=== PATIENT | male | born 1995 | race Hispanic/Latino ===

== ENCOUNTER 2018-07-10 10:07 | Emergency (ER) | payer SELFPAY ==
[2018-07-10] MEDS ORDERED: Albuterol Sulfate 2.5 mg/0.5 ml Neb ONE ×4 (10:25→11:43)
[2018-07-10] MEDS ORDERED: Dexamethasone 4 mg/ml Vial ONE (10:26)
[2018-07-10] MEDS ORDERED: Magnesium 2 GM/50 ML BAG (IN WATER) ONE (10:26)
[2018-07-10 10:37] LABS: Actual Bicarbonate (HCO3a) 27.7 mEq/L (22-28); Analyzer IN Cardio ER; Base Excess (BEa) 0.4 mEq/L (-2.0 to +3.0); CO2 Tension 53.8 mmHg (35.0-45.0); Calcium, Ionized 1.16 mmol/L (1.12-1.30); Carboxyhemoglobin (COHb) 1.6 gm% (0.0-3.0); Hemoglobin (Hb) 17.4 g/dL (14.0-18.0); O2 Tension (PaO2) 63.8 mmHg (80.0-100.0); pH, Arterial 7.33 (7.35-7.45)
[2018-07-10 10:38] LABS: Puncture Site RRA
[2018-07-10 10:42] LABS: #Basophils 0.1 thou/uL (0.0-0.2); #Eosinphils 0.6 thou/uL (0.0-0.7); #Lymphocytes 1.8 thou/uL (1.20-3.40); #Monocytes 1.1 thou/uL (0.11-0.59); #Neutrophils 8.7 thou/uL (1.40-6.50); %Basophils 0.5 % (0.0-1.0); %Lymphocytes 14.9 % (21.0-51.0); %Monocytes 8.6 % (0.0-10.0); %Neutrophils 71.1 % (42.0-75.0); Mean Corpuscular HGB CONC 32.7 g/dL (32.0-36.0); Mean Corpuscular Volume 94.9 fL (78.0-98.0); Platelet Count 307 thou/uL (130-400); RBC Distribution Width 11.6 % (11.5-14.5); Red Blood Cell (RBC) Count 5.48 mill/uL (4.70-6.10); White Blood Cell (WBC) Count 12.2 thou/uL (4.8-10.8)
--- NOTE | 2018-07-10 11:04 | RAD ---
CHEST ONE VIEW: History: Chest pain. Comparison: None. FINDINGS: Mild increased peribronchial vascular markings. No pneumothorax. No effusion. No confluent airspace c onsolidation. IMPRESSION: Findings suggestive of reactive airway disease. POS: [facility]
[2018-07-10 11:30] LABS: ALT (SGPT) 12 U/L (8-55); AST (SGOT) 18 U/L (5-34); Albumin 4.4 g/dL (3.5-5.0); Alkaline Phosphatase 120 U/L (40-150); Anion Gap 13 mmol/L (10-20); BUN (Urea Nitrogen) 7 mg/dL (8.9-20.6); Bilirubin, Total 0.5 mg/dL (0.2-1.2); Calc. Creatinine Clearance 0 mL/min (70-130); Calcium 9.3 mg/dL (7.8-10.44); Carbon Dioxide 28 mmol/L (22-29); Chloride 102 mmol/L (98-107); Estimated GFR-MDRD Greater than 90; Globulin 3.2 g/dL (2.4-3.5); Glucose 106 mg/dL (70-105); Potassium 3.9 mmol/L (3.5-5.1); Protein, Total 7.6 g/dL (6.0-8.3); Sodium 139 mmol/L (136-145)
== END 2018-07-10 12:15 | disposition home or self-care (01) ==
LOC: ERS 10:07
DX: J45.901 Unspecified asthma with (acute) exacerbation (principal)
CPT/HCPCS: 36415; 71045; 80053; 82805; 85025; 94640; 94760; 96361; 96374; 96375; J1100; J3475; J7611; J7620

== ENCOUNTER 2018-07-10 15:07 | Inpatient (IN) | payer SELFPAY ==
[2018-07-10] MEDS ORDERED: Naloxone HCl 2 mg/2 ml Syringe ONE ×2 (15:16→16:51)
[2018-07-10] MEDS ORDERED: Albuterol Sulfate 2.5 mg/0.5 ml Neb ONE ×2 (16:55)
[2018-07-10] MEDS ORDERED: Naloxone HCl 2 MG, Admixture Fee 1 EACH in Sodium Chloride 0.9% 500 ML IV PRN (17:03)
[2018-07-10 17:48] LABS: #Basophils 0.1 thou/uL (0.0-0.2); #Lymphocytes 0.2 thou/uL (1.20-3.40); #Monocytes 0.3 thou/uL (0.11-0.59); #Neutrophils 18.5 thou/uL (1.40-6.50); %Basophils 0.6 % (0.0-1.0); %Eosinophils 0.2 % (0.0-10.0); %Lymphocytes 1.2 % (21.0-51.0); %Monocytes 1.7 % (0.0-10.0); %Neutrophils 96.4 % (42.0-75.0); Hemoglobin 15.7 g/dL (14.0-18.0); Mean Corpuscular HGB CONC 33.1 g/dL (32.0-36.0); Mean Corpuscular Volume 96.8 fL (78.0-98.0); Mean Platelet Volume 7.7 fL (7.4-10.4); Platelet Count 257 thou/uL (130-400); RBC Distribution Width 11.7 % (11.5-14.5); White Blood Cell (WBC) Count 19.2 thou/uL (4.8-10.8)
[2018-07-10 17:54] LABS: Bilirubin Negative (Negative); Blood, Urine Trace (Negative); Clarity CLEAR (Clear); Glucose, Urine (Dipstick) 100 mg/dL (Negative); Leukocyte Negative (Negative); Nitrite Negative (Negative); Protein, Urine (Dipstick) Negative (Neg-Trace); Specific Gravity, Urine 1.007 (1.002-1.036); Urobilinogen 0.2 mg/dL (0.2-1.0)
[2018-07-10 17:57] LABS: Bacteria/HPF None Seen HPF (None Seen); Hyaline Casts/LPF 4-6 HYALINE CAST LPF (0-3 Hyaline); Pathc Cast-AUWi Flag 0.87 (0-2.49); RBC/HPF 0-3 HPF (0-3)
[2018-07-10 18:04] LABS: Amphetamine Not Detected (NotDetected); Barbiturates Screen Not Detected (NotDetected); Benzodiazepine Screen Not Detected (NotDetected); Cocaine Metabolite Screen Not Detected (NotDetected); Medtox Control Line Valid? VALID (VALID); Medtox Reader # READER 4; Methadone Not Detected (NotDetected); Methamphetamine Not Detected (NotDetected); Opiate Screen Detected (NotDetected); Oxycodone Screen Not Detected (NotDetected); Phencyclidine (PCP) Not Detected (NotDetected); THC/Cannabinoid Screen Detected (NotDetected); Tricyclic Screen Not Detected (NotDetected)
--- NOTE | 2018-07-10 18:27 | PDOC.FPRHP ---
- History of Present Illness Chief Complaint: Heroin OD History of Present Illness: 23 yo M with PMH asthma and opioid abuse was brought in by EMS for heroin overdose. Patient was seen in ED prior that day because he ran out of asthma inhaler. Patient left hospital and then was found unresponsive in care with needle in arm. Friend called EMS. Given 1mg narcan by EMS, given 2mg then 2mg narcan in ED. Patient denies suicide attempt and says this was an accidental OD. Per ED report, patient uses heroin every other day, took more today than he usually does. Asthma: uses albuterol inhaler multiple times per day, no recent exacerbation, cough, SOB. ED report from earlier today said pt presented with 2 day hx productive cough, increased wheezing/SOB Mother in room and says pt has struggled with opioid abuse since age of 16, has had multiple rehab stays, overdoses with intubation. 3-4 intubation in life 2/2 OD or asthma. Patient moved from [place] in October. Recently visited [place] and hung out with wrong crowd. Mother says any time he goes to [place] he get into trouble. Pt says he might feel depressed at times. Never been diagnosed or treated. Also says there are times he feels on top of the world with no reason. Denies SI. ED Course: albuterol, duoneb, 2L, narcan 1mg EMS, narcan 2mg +2mg in ED, narcan drip - Allergies/Adverse Reactions Allergies Allergy/AdvReac Type Severity Reaction Status Date / Time Unable to Assess Allergy Verified 07/10/18 17:00 - History PMHx: Asthma PSHx: L toe FHx: DM grandfather, Breast cancer grandmother Social: Marijuana, cocaine abuse. Denies tobacco use. Intermittent alcohol use, unable to quantify. - Review of Systems General: denies: fever/chills ENT: denies: nasal congestion Respiratory: denies: cough, shortness of breath Cardiovascular: denies: chest pain, palpitation Gastrointestinal: denies: nausea, vomiting, diarrhea, abdominal pain Genitourinary: denies: incontinence, dysuria Skin: denies: rashes, lesions Musculoskeletal: denies: pain, tenderness Neurological: denies: seizure, weakness Psychological: reports: depression. denies: anxiety - Vital signs BP: 109/45 HR: 101 RR: 14 Tmax: 98.3 Pox: 95% on RA Wt: 78 kg - Physical Exam Constitutional: NAD, other (Oriented x3, short and senior living memory recall, intermittently falls asleep in exam, follows commands) HEENT: normocephalic and atraumatic, EOMI, conjunctiva clear, MMM, other ( pupils pinpoint) Heart: RRR, normal S1/S2, no murmurs/rubs/gallops, pulses present, no edema Lungs: no respiratory distress, good air movement, other (diffuse expiratory wheeze) Abdomen: soft, non-tender, bowel sounds present Musculoskeletal: normal structure, normal tone Neurological: no focal deficit Skin: no rash/lesions, good turgor, capillary refill <2 seconds Heme/Lymphatic: no unusual bruising or bleeding Psychiatric: intact recent and remote memory FMR H&P: Results - Labs Result Diagrams: 07/11/18 04:44 07/11/18 04:44 Lab results: WBC 19.2 thou/uL (4.8-10.8) H 07/10/18 17:18 Hgb 15.7 g/dL (14.0-18.0) 07/10/18 17:18 Hct 47.5 % (42.0-52.0) 07/10/18 17:18 MCV 96.8 fL (78.0-98.0) 07/10/18 17:18 Plt Count 257 thou/uL (130-400) 07/10/18 17:18 Neutrophils % 96.4 % (42.0-75.0) H 07/10/18 17:18 Urine Ketones Negative mg/dL (Negative) 07/10/18 17:10 Urine Blood Trace (Negative) H 07/10/18 17:10 Urine Nitrite Negative (Negative) 07/10/18 17:10 Ur Leukocyte Esterase Negative (Negative) 07/10/18 17:10 Urine RBC 0-3 HPF (0-3) 07/10/18 17:10 Urine WBC 4-6 HPF (0-3) H 07/10/18 17:10 Ur Squamous Epith Cells 4-6 HPF (0-3) H 07/10/18 17:10 Urine Bacteria None Seen HPF (None Seen) 07/10/18 17:10 FMR H&P: A/P - Problem List (1) Acute respiratory failure with hypoxia Current Visit: Yes Status: Acute Code(s): J96.01 - ACUTE RESPIRATORY FAILURE WITH HYPOXIA (2) Heroin overdose Current Visit: Yes Status: Acute Code(s): T40.1X1A - POISONING BY HEROIN, ACCIDENTAL (UNINTENTIONAL), INIT ENCNTR (3) Marijuana abuse Current Visit: Yes Status: Acute Code(s): F12.10 - CANNABIS ABUSE, UNCOMPLICATED (4) Asthma Current Visit: Yes Status: Acute Code(s): J45.909 - UNSPECIFIED ASTHMA, UNCOMPLICATED - Plan Acute Hypoxic Respiratory Failure 2/2 Heroin Overdose - UDS pos for opioid, cannabinoid - was requiring supplemental O2, but this resolved with additional narcan doses , now satting well on RA - received 5mg narcan total, now on narcan drip. Will wean narcan drip to maintain respiratory status - pt denies suicide attempt Heroin abuse - for past ~7 years - has bene in rehabs multiple times - consult CM for rehab placement options Mild asthma exacerbation - recevied decadron, mag, nebs in ED earlier in the day. Sent home with rx fro medrol pack and z pack - uses albuterol inhaler multiple times daily typically - continue steroids, nebs - patient likely needs addition to asthma regimen for better control, CM to assist as well Marijuana abuse Dispo: admit to CCU FMR H&P: Upper Level - Pertinent history 23 yr old male with PMH of asthma and several year history of drug abuse is brought to ER after being found unresponsive in his car with needle and heroin. He was given 1 mg narcan in the field followed by 2 subsequent 2mg doses in the ER. He was placed on narcan drip and transferred to CCU. He was seen in ER earlier this AM to get a refill of his albuterol inhaler and was diagnosed with asthma exacerbation. He received decadron 10 mg and mag. He reports daily use of albuterol inhaler. His mother is at bedside with her boyfriend. She reports that they moved to [place] little over 2 years ago from [place]. Approx 7 months ago they moved from [place] to [place]. He had an issue with heroin abuse in [place] but had been clean for the last few months. Last presumed overdose with in 01/2018 where he required intubation. Mom notes at least 3-4 previous intubations for either asthma exacerbations or overdoses. Patient otherwise has a negative ROS except for possible depression- he is very sleepy and unable to provide good history for this at this time. - Pertinent findings Gen: drowsy but arrousable and answers questions, no acute distress Eyes: pinpoint pupils bilaterally Mouth: MMM Heart: RRR no M/R/G Lungs: Good air movement with some diffuse wheezing, no rhales or rhonchi Abd: normal active bowel sounds, non-tender to palpation Ext: no edema bilaterally - Plan Date/Time: 07/10/181826 I, [Linda Martinez], have evaluated this patient and agree with findings/plan as outlined by consultant intern resident. Pertinent changes/additions are listed here. 23 yr old male with acute intoxication acute hypoxic respiratory failure 2/2 heroin overdose -resolved with narcan -titrate narcan drip down to 1 mg/ hr and cont to titrate overnight -monitor closely in ICU -after narcan off 3 hours, likely safe to discharge Heroin overdose -see above for plan -consult social service agency director for rehab options and outpatient health for all Asthma exacerbation, mild -received mag and steroids this AM in ER -cont on prednisone taper -cont on duonebs PCP: none code status: full diet: reg dispo: likely in 1-2 day
[2018-07-10 18:31] LABS: ALT (SGPT) 21 U/L (8-55); AST (SGOT) 29 U/L (5-34); Acetaminophen Less than 6.0 mcg/mL (10.0-30.0); Albumin 3.9 g/dL (3.5-5.0); Alcohol Less than 10 mg/dL (Less than 10); Alkaline Phosphatase 104 U/L (40-150); Anion Gap 15 mmol/L (10-20); BUN (Urea Nitrogen) 8 mg/dL (8.9-20.6); Bilirubin, Total 0.4 mg/dL (0.2-1.2); CK (CPK) 186 U/L (30-200); Calc. Creatinine Clearance 0 mL/min (70-130); Calcium 8.3 mg/dL (7.8-10.44); Carbon Dioxide 21 mmol/L (22-29); Chloride 107 mmol/L (98-107); Estimated GFR-MDRD 87; Globulin 2.6 g/dL (2.4-3.5); Glucose 178 mg/dL (70-105); Potassium 3.8 mmol/L (3.5-5.1); Protein, Total 6.5 g/dL (6.0-8.3); Salicylate Less than 8.0 mg/dL (15.0-30.0); Sodium 139 mmol/L (136-145)
[2018-07-10] MEDS ORDERED: SODIUM CHLORIDE IV PRN (19:00)
[2018-07-10] MEDS ORDERED: NALOXONE HCL IV PRN (19:00)
[2018-07-10] MEDS ORDERED: ADMIXTURE FEE IV PRN (19:00)
[2018-07-10] MEDS ORDERED: Ondansetron PF 4 MG/2 ML Vial IVP PRN (19:10)
[2018-07-10] MEDS ORDERED: Ondansetron ODT 4 MG TAB SL PRN (19:10)
[2018-07-10 19:16] LABS: Bilirubin Negative (Negative); Blood, Urine Trace (Negative); Clarity CLEAR (Clear); Glucose, Urine (Dipstick) 100 mg/dL (Negative); Leukocyte Negative (Negative); Nitrite Negative (Negative); Protein, Urine (Dipstick) Negative (Neg-Trace); Specific Gravity, Urine 1.009 (1.002-1.036); Urobilinogen 0.2 mg/dL (0.2-1.0)
[2018-07-10 19:21] LABS: Bacteria/HPF None Seen HPF (None Seen); Pathc Cast-AUWi Flag 1.88 (0-2.49); RBC/HPF 0-3 HPF (0-3); WBC/HPF 0-3 HPF (0-3)
[2018-07-10 19:31] LABS: Hyaline Casts/LPF 0-3 HYALINE CAST LPF (0-3 Hyaline); Transitional Epithelial 0-3 HPF (0-3)
[2018-07-10] MEDS: D5 1/2 NS w/20 mEq KCL 1,000 ML IV SCH (20:06)
[2018-07-10 20:13] LABS: Hemoglobin A1c 5.1 % (4.0-6.0)
--- NOTE | 2018-07-10 20:43 | RAD ---
PORTABLE CHEST: 07/10/18 HISTORY: Asthmatic exacerbation. COMPARISON: 07/10/18 study. Heart size and mediastinum are within normal limits. The lungs are clear of infiltrates. No bony find ings. IMPRESSION: No active intrathoracic disease. POS: [facility]
[2018-07-11 05:01] VITALS: TEMP 98.6
[2018-07-11 05:15] LABS: #Lymphocytes 1.2 thou/uL (1.20-3.40); #Monocytes 1.1 thou/uL (0.11-0.59); #Neutrophils 10.2 thou/uL (1.40-6.50); %Basophils 0.1 % (0.0-1.0); %Eosinophils 0.2 % (0.0-10.0); %Lymphocytes 9.5 % (21.0-51.0); %Neutrophils 81.2 % (42.0-75.0); Hemoglobin 14.4 g/dL (14.0-18.0); Mean Corpuscular HGB CONC 33.5 g/dL (32.0-36.0); Mean Corpuscular Hemoglobin 32.1 pg (27.0-31.0); Mean Corpuscular Volume 95.7 fL (78.0-98.0); Mean Platelet Volume 7.4 fL (7.4-10.4); Platelet Count 284 thou/uL (130-400); RBC Distribution Width 11.6 % (11.5-14.5); White Blood Cell (WBC) Count 12.5 thou/uL (4.8-10.8)
[2018-07-11 05:32] LABS: ALT (SGPT) 16 U/L (8-55); AST (SGOT) 26 U/L (5-34); Albumin 3.9 g/dL (3.5-5.0); Alkaline Phosphatase 96 U/L (40-150); Anion Gap 13 mmol/L (10-20); BUN (Urea Nitrogen) 7 mg/dL (8.9-20.6); Bilirubin, Total 0.6 mg/dL (0.2-1.2); Calc. Creatinine Clearance 0 mL/min (70-130); Calcium 9.1 mg/dL (7.8-10.44); Carbon Dioxide 23 mmol/L (22-29); Chloride 107 mmol/L (98-107); Estimated GFR-MDRD Greater than 90; Globulin 2.6 g/dL (2.4-3.5); Glucose 126 mg/dL (70-105); Protein, Total 6.5 g/dL (6.0-8.3); Sodium 139 mmol/L (136-145)
[2018-07-11 05:47] LABS: Syphilis Antibody Nonreactive (Nonreactive); Syphilis Antibody Index 0.05 S/CO (<1.00 Non-Reactive)
[2018-07-11 05:49] LABS: Hep C IgG Ab Non-Reactive (NonReactive); Hep C Index 0.19 S/CO (0-0.79)
[2018-07-11] MEDS: D5 1/2 NS w/20 mEq KCL 1,000 ML IV SCH (07:34)
--- NOTE | 2018-07-11 07:39 | PDOC.FM ---
- Subjective Subjective: This morning the patient states he is feeling well overall. He states he slept well. Denies cough or SOB. The patient denies fevers, chills, or sweats. He states he had not used heroin in some time and recently went to [place] and spent time with some friends that gave him heroin. Per mother's report has has been intubated multiple times in the past 2/2 overdose. The patient states he injected tar and thinks he overdosed because he had not used for a while. Patient states he would be interested in doing an outpatient treatment program. - Objective Vital Signs & Weight: Vital Signs (12 hours) Temp Pulse Resp Pulse Ox 07/11/18 07:11 89 16 99 07/11/18 05:00 98.6 F 07/11/18 03:30 94 L 07/11/18 02:00 98.8 F 07/10/18 23:50 95 07/10/18 23:32 117 H 20 99 07/10/18 23:00 98.4 F 07/10/18 19:44 95 Most Recent Monitor Data Heart Rate from ECG 93 NIBP 120/80 NIBP BP-Mean 93 Respiration from ECG 13 SpO2 97 I&O: 07/10/18 07/11/18 07/12/18 06:59 06:59 06:59 Intake Total 330 Output Total 2500 0 Balance -2170 0 Result Diagrams: 07/11/18 04:44 07/11/18 04:44 Phys Exam - Physical Examination Constitutional: NAD HEENT: PERRLA, moist MMs Neck: no nodes Respiratory: no wheezing, clear to auscultation bilateral Cardiovascular: RRR, no significant murmur, no rub Gastrointestinal: soft, non-tender, no distention, positive bowel sounds Musculoskeletal: no edema, pulses present Neurological: non-focal, moves all 4 limbs Lymphatic: no nodes Psychiatric: normal affect, A&O x 3 Skin: no rash, cap refill <2 seconds Dx/Plan (1) Acute respiratory failure with hypoxia Code(s): J96.01 - ACUTE RESPIRATORY FAILURE WITH HYPOXIA Status: Acute (2) Asthma Code(s): J45.909 - UNSPECIFIED ASTHMA, UNCOMPLICATED Status: Acute (3) Heroin overdose Code(s): T40.1X1A - POISONING BY HEROIN, ACCIDENTAL (UNINTENTIONAL), INIT ENCNTR Status: Acute (4) Marijuana abuse Code(s): F12.10 - CANNABIS ABUSE, UNCOMPLICATED Status: Acute - Plan Plan: 23 yr old male with heroin overdose Heroin overdose -see above for plan -case management consulted for additional resource recs - off narcan since 8pm last night - has naloxone at home - denies SI, states has not used for a while - discussed safe practices, discussed cessation - patient is interested in outpatient treatment, gave information for [facility] Asthma exacerbation, mild -r eceived mag and steroids morning of 07/11 in ED - cont on prednisone taper, has script for taper - will check peak flow this AM - will plan to prescribe pulmicort 2/2 hx of multiple exacerbations and daily albuterol usage acute hypoxic respiratory failure 2/2 heroin overdose- resolved PCP: none-> will f/u with Dr. Dread Jules code status: full diet: reg dispo: anticipate d/c this AM Addendum - Attending - Attending Attestation Date/Time: 07/11/18 [id number] I personally evaluated the patient and discussed the management with Dr. Jules. I agree with and repeated the History, Examination, Assessment and Plan documented above with any addition or exceptions noted below.
[2018-07-11] MEDS ORDERED: predniSONE 20 MG TAB PO SCH (08:00)
[2018-07-11] MEDS ORDERED: Enoxaparin Sodium 40 MG/0.4 ML SYRINGE SC SCH (09:00)
--- NOTE | 2018-07-11 09:29 | CON ---
DATE OF CONSULTATION: HISTORY OF PRESENT ILLNESS: Jared Boggs is a 23-year-old gentleman who was admitted to the hospital last night at 6:30 after he took IV heroin as per his history. He done as before. He apparently was placed on a Narcan drip. He says he uses 50-60 injections. He works at a local restaurant. He is from [place]. This morning, he is awake, alert, and responsive. He was on a Narcan, which will be discontinued. PAST MEDICAL HISTORY: Asthma. He takes an albuterol inhaler. Previous admissions for asthma. PAST SURGICAL HISTORY: None. SOCIAL HISTORY: He has longstanding history of drug abuse. Denies any tobacco abuse. CURRENT MEDICATIONS: Includin. Singulair 10. 2. Pulmicort. 3. Albuterol inhaler. ALLERGIES: NONE. REVIEW OF SYSTEMS: Otherwise unremarkable. PHYSICAL EXAMINATION: GENERAL: Awake, alert, and responsive. VITAL SIGNS: Temperature 98, pulse 89, and blood pressure 104/65. CHEST: Decreased breath sounds. No wheezing. CARDIAC: Normal S1, S2. No gallops. ABDOMEN: No masses. LABORATORY DATA: White count 39185, H and H , platelet count is normal. Lytes are normal. His toxicology screen revealed opiates and cannabinoids. He had a chest x-ray taken in the ER, which shows no acute infiltrates. IMPRESSION: 1. Metabolic encephalopathy secondary to intravenous heroin abuse. 2. History of asthma. PLAN: The patient appears to be at baseline. He is going to get outpatient treatment for his heroin addiction. Otherwise, he can continue his Singulair 10, Pulmicort twice a day, as needed. Pulmonary/Critical Care will follow while in the ICU. Job ID: [id number]
--- NOTE | 2018-07-12 08:06 | DIS ---
DATE OF ADMISSION: 07/10/2018 DATE OF DISCHARGE: 07/11/2018 RESIDENT: Dread Jules MD ADMITTING ATTENDING: Alcides Frye MD DISCHARGE ATTENDING: Hamlet Awad MD CONSULTS: Pulmonology, Dr. Contreras. PROCEDURES: None. PRIMARY DIAGNOSIS: Heroin overdose. SECONDARY DIAGNOSIS: Asthma exacerbation. DISCHARGE MEDICATIONS: 1. Pulmicort. 2. Singulair. 3. Albuterol. 4. Medrol Dosepak. Discontinued medications: None. HISTORY OF PRESENT ILLNESS/HOSPITAL COURSE: This is a 23-year-old male with history of multiple intubations secondary to heroin overdose and also other intubations secondary to asthma exacerbations. He recently moved to [facility] from [place] and [place] before that. The patient has a long history of heroin abuse. He states he had not used heroin for the last few months. Yesterday afternoon, he injected himself with heroin and stated that he did not have tolerance, so he had injected the same amount he was using before. He was found unconscious in his car by a friend. Upon presentation to the ER, he was given 2 doses of Narcan and was still having mild decreased respiratory rate. Therefore, he was put on a Narcan drip and admitted to the ICU. He was taken off the Narcan drip at 8:00 p.m. He slept well throughout the night and had no issues. The patient was given DuoNeb throughout the stay. The patient states that he ran out of his albuterol and had been using it daily for the last few weeks. He states that he had been on Singulair in the past and it was helpful. Poison Control was consulted and they said that after being off the Narcan for 6 hours in observation, he would be stable for discharge. Safe use of heroin was discussed including using sterile water, clean cooker and throwing away cotton balls. The patient states he plans to abstain from heroin in the future. Information was given on outpatient treatment programs. He states he is not interested in inpatient treatment at this time, but he would call the outpatient programs. The patient is given follow up with Dr. Dread Jules, [facility] in 1 week. The patient will also follow up with Psychology at [facility]. DISPOSITION: Stable. DISCHARGE INSTRUCTIONS: 1. Location: Home. 2. Diet: Regular. 3. Activity: As tolerated. 4. Followup: Continue to discuss heroin abstinence. Treat asthma action plan. Establish care with [facility] with financial assistance program. Job ID: [id number]
== END 2018-07-11 11:01 | disposition home or self-care (01) | DRG 917 ==
LOC: ERS 15:07 → CCU 18:53
PROVIDERS: ADMIT Family Medicine; ATTEND Family Medicine
DX: T40.1X1A Poisoning by heroin, accidental (unintentional), initial encounter (principal); J96.01 Acute respiratory failure with hypoxia; G92 Toxic encephalopathy; J45.901 Unspecified asthma with (acute) exacerbation; F12.10 Cannabis abuse, uncomplicated
CPT/HCPCS: 36415; 36416; 71045; 80053; 80306; 80307; 81003; 81015; 82550; 83036; 85025; 86780; 86803; 93005; 94640; 94644; 96361; 96365; 96374; 96376; J1650; J2310; J7050; J7611; J7620

== ENCOUNTER 2019-03-22 13:45 | Inpatient (IN) | payer SELFPAY ==
[2019-03-22 15:16] VITALS: BMI 24.4
[2019-03-22] MEDS ORDERED: HYDROcodone/Acetaminophen 5/325 mg Tablet PO PRN ×2 (16:09)
[2019-03-22] MEDS ORDERED: Senokot S 8.6-50 MG TAB PO PRN (16:09)
[2019-03-22] MEDS ORDERED: Acetaminophen 325 MG TAB PO PRN (16:09)
[2019-03-22] MEDS: methylPREDNISolone Sod Succ 40 MG VIAL IVP SCH ×2 (18:34→23:34)
[2019-03-22] MEDS: Famotidine 20 MG TAB PO SCH (20:34)
[2019-03-22] MEDS ORDERED: Montelukast Sodium 10 mg Tablet PO SCH (21:00)
--- NOTE | 2019-03-22 21:23 | HP ---
PRIMARY CARE PHYSICIAN: None. CHIEF COMPLAINT: Asthma exacerbation. HISTORY OF PRESENT ILLNESS: Mr. Boggs is a 23-year-old man who came to [facility] as a direct admission from [facility]. The patient sought management at [facility] earlier today for an asthma exacerbation. Reports that he has had increasing shortness of breath over the last 48 hours. Reports that his home albuterol inhaler was not working very well and he was becoming more short of breath. The patient reports that he has been intubated 3 times in his life for his asthma and has had numerous hospitalizations. He reports that he does not have the money to take his Singulair and only keeps a ProAir inhaler with him as this is what he can afford. He denies ever seeing a anesthesiology physician as an outpatient due to financial constraints. At [facility], patient was given DuoNeb, steroids and magnesium and the patient does report that he does feel better and then, he was sent to [place] for admission. The patient was admitted in June of this year for heroin overdose. Dr. Contreras, at that point, saw him and recommended Singulair and Pulmicort twice a day and then albuterol as needed. The patient admitted to the medical floor for further management. PAST MEDICAL HISTORY: Pertinent for asthma and heroin addiction. REVIEW OF SYSTEMS: Reports shortness of breath. Reports wheezing. Reports chills. Denies fever. Reports dyspnea. All other systems are reviewed and are negative unless mentioned in the HPI. KNOWN ALLERGIES: None. CURRENT MEDICATIONS: Albuterol inhaler as needed. PHYSICAL EXAMINATION: VITAL SIGNS: Temperature is 98.5, pulse is 98, respirations 17, pO2 sats are 94% on 2 L nasal cannula, blood pressure is 126/64 CONSTITUTIONAL: The patient is in no acute distress. He is alert and oriented to person, place and time. HEAD: Atraumatic and normocephalic. EYES: Pupils are equally round and reactive to light. Extraocular muscles are intact. ENT: Mouth exam is normal. Mucous membranes are moist. NECK: Normal range of motion. Trachea is midline. RESPIRATORY/CHEST: Expiratory wheezes bilaterally. Moderate respiratory distress. No use of accessory muscles. Speaking in complete sentences. CARDIOVASCULAR: Regular heart rate and rhythm. No murmurs. ABDOMEN: Nontender. Bowel sounds are heard. BACK: Normal range of motion. No tenderness. EXTREMITIES: Upper extremity; motor strength is normal. Normal range of motion. Radial pulses normal. Lower extremity; motor strength is normal. Normal range of motion. Pedal pulses are normal. NEURO: Patient is oriented to person, place, and time. Speech is normal. SKIN: Warm, dry, normal in color. ASSESSMENT AND PLAN: 1. Asthma exacerbation. Scheduled medications q.6 hours as needed. We will add p.r.n. q.4 as needed Solu-Medrol. We will obtain a chest x-ray in the morning, a 2-view. Check mag level in the morning. 2. Deep vein thrombosis and gastrointestinal prophylaxis have been started. 3. Hospital course dependent on clinical findings. Job ID: [id number]
[2019-03-22] MEDS: Bacteriostatic Water 30 ML VIAL FS PRN (23:34)
[2019-03-23] MEDS: Bacteriostatic Water 30 ML VIAL FS PRN (05:10)
[2019-03-23] MEDS: methylPREDNISolone Sod Succ 40 MG VIAL IVP SCH ×2 (05:10→11:28)
[2019-03-23 05:56] LABS: #Monocytes 0.5 thou/uL (0.11-0.59); #Neutrophils 11.2 thou/uL (1.40-6.50); %Basophils 0.2 % (0.0-1.0); %Eosinophils 0.1 % (0.0-10.0); %Lymphocytes 8.1 % (21.0-51.0); %Monocytes 3.7 % (0.0-10.0); %Neutrophils 87.9 % (42.0-75.0); Hemoglobin 15.9 g/dL (14.0-18.0); Mean Corpuscular HGB CONC 33.2 g/dL (32.0-36.0); Mean Corpuscular Hemoglobin 31.9 pg (27.0-31.0); Mean Corpuscular Volume 96.1 fL (78.0-98.0); Mean Platelet Volume 7.5 fL (7.4-10.4); Platelet Count 334 thou/uL (130-400); RBC Distribution Width 11.2 % (11.5-14.5); Red Blood Cell (RBC) Count 4.99 mill/uL (4.70-6.10); White Blood Cell (WBC) Count 12.8 thou/uL (4.8-10.8)
[2019-03-23 06:13] LABS: Anion Gap 12 mmol/L (10-20); BUN (Urea Nitrogen) 13 mg/dL (8.9-20.6); Calc. Creatinine Clearance 155 mL/min (70-130); Calcium 9.3 mg/dL (7.8-10.44); Carbon Dioxide 23 mmol/L (22-29); Chloride 105 mmol/L (98-107); Estimated GFR-MDRD Greater than 90; Glucose 133 mg/dL (70-105); Magnesium 2.5 mg/dL (1.6-2.6); Potassium 4.3 mmol/L (3.5-5.1); Sodium 136 mmol/L (136-145)
[2019-03-23] MEDS: Famotidine 20 MG TAB PO SCH (08:40)
[2019-03-23] MEDS ORDERED: FLU VACC QS2019-20(6MOS UP)/PF 60 MCG/0.5 ML SYRINGE IM ONE (09:00)
--- NOTE | 2019-03-23 11:06 | RAD ---
CHEST 2 VIEWS: Date: 03/23/19 COMPARISON: 07/10/18. HISTORY: Asthma. FINDINGS: No pneumothorax, pleural fluid, focal consolidation, or alveolar edema. Heart and mediastinal contour s are unremarkable. Lungs are mildly hyperinflated, which may signify air trapping. IMPRESSION: No focal consolidation. Mild pulmonary hyperinflation. POS: [facility]
[2019-03-23 11:28] VITALS: TEMP 98.5
[2019-03-23] MEDS ORDERED: Acetaminophen 500 MG TAB PO PRN (11:28)
[2019-03-23] MEDS ORDERED: Azithromycin 500 MG in Sodium Chloride 0.9% 250 ML 250 ML IVPB SCH (11:30)
[2019-03-23 13:03] VITALS: BP 132/65
--- NOTE | 2019-03-24 03:43 | DIS ---
DATE OF ADMISSION: 03/22/2019 DATE OF DISCHARGE: 03/23/2019 REASON FOR HOSPITALIZATION: Shortness of breath. SIGNIFICANT FINDINGS: The patient was found to have acute asthma exacerbation. PROCEDURES PERFORMED AND TREATMENTS RENDERED: The patient had aggressive pulmonary medications including IV steroids, small volume nebulizers scheduled and as needed, and antibiotic therapy. With maximum medical therapy, the patient improved to his normal state of well-being. CONDITION ON DISCHARGE: Stable. SPECIFIC INSTRUCTIONS FOR THE PATIENT/FAMILY: 1. The patient is recommended to take all medications as directed, to be re-evaluated by primary care physician in the next 5 to 7 days. 2. The patient is recommended to follow up with primary care physician in the next 5 to 7 days. 3. The patient is recommended to take control of his asthma and his medical conditions more seriously, so that he can avoid future complications of asthma including intubations in the future. 4. The patient is recommended to abstain from smoking anything including but not limited to, tobacco, marijuana, or other illicit drugs. 5. The patient is recommended to abstain from heroin use as he has been doing well for the last eight months. DISCHARGE MEDICATIONS: 1. Medrol Dosepak x1 Dosepak. 2. Singulair 10 mg one tablet p.o. daily. 3. DuoNeb 3 mL nebulizer solution q.4 hours p.r.n. shortness of breath. 4. Fluticasone propionate (Flovent HFA) 220 mcg inhaled b.i.d. 5. Azithromycin 250 mg one tablet p.o. daily for four days. 6. Albuterol HFA inhaler two puffs p.o. q.4 hours p.r.n. shortness of breath. HOSPITAL COURSE: Mr. Boggs is a pleasant 23-year-old gentleman with past medical history of uncontrolled asthma, who does not take maintenance therapy, presents with shortness of breath. The patient states that he has several work friends and colleagues, who are also sick and having trouble breathing lately. The patient was concerned and so he sought emergency medical attention and was transferred for higher level of care. The patient had aggressive treatment for his asthma including IV steroids, IV antibiotics, and inhaled small volume nebulizers. With maximum medical therapy, the patient did improve and when I evaluated him on 03/23/2019, he was in his regular state of well-being. The patient is breathing well on room air and is not having any more shortness of breath. The patient does not have any expiratory wheezes on my auscultatory exam. At this time, it is safe to transition the patient to oral medications. I recommended the patient strictly abstain from any inhaled smoke including but not limited to, tobacco, secondhand tobacco, or illicit substances like marijuana or other drugs. I recommended the patient that smoking any substance in an asthmatic would likely lead to future complications including, but not limited to asthma exacerbations, shortness of breath, intubations, and even . The patient acknowledges these risks and states that he will stop smoking any substance. The patient states that he is doing well, abstaining from heroin and has not used in the last eight months. The patient states that he does not have insurance and that is the reason why he does not take maintenance therapy. Efforts were made to get the patient set up with [facility], who may be able to help with medications and doctor visits in the future for an uninsured patient. The patient recommended safe for discharge and all of his medications were sent to his preferred pharmacy. The patient discharged in stable condition. Greater than 35 minutes spent coordinating care and discharge process for this patient. Job ID: [id number]
== END 2019-03-23 13:05 | disposition home or self-care (01) | DRG 203 ==
LOC: T4-A 14:28
PROVIDERS: ADMIT Family Medicine; ATTEND Family Medicine
DX: J45.901 Unspecified asthma with (acute) exacerbation (principal); Z91.19 Patient's noncompliance with other medical treatment and regimen; Z79.51 Long term (current) use of inhaled steroids
CPT/HCPCS: 36415; 71046; 80048; 83735; 85025; 90471; 90686; 90732; 94640; G0008; G0009; J0456; J2920; J7050; J7620

== ENCOUNTER 2019-04-20 08:30 | Inpatient (IN) | payer OTHER, SELFPAY ==
[2019-04-20] MEDS ORDERED: Senokot S 8.6-50 MG TAB PO PRN (08:57)
[2019-04-20] MEDS ORDERED: Acetaminophen 325 MG TAB PO PRN (08:57)
[2019-04-20 09:06] VITALS: BMI 23.7
[2019-04-20] MEDS: Enoxaparin Sodium 40 MG/0.4 ML SYRINGE SC SCH (10:23)
[2019-04-20] MEDS: Famotidine 20 MG TAB PO SCH ×2 (10:24→21:32)
[2019-04-20] MEDS: methylPREDNISolone Sod Succ 40 MG VIAL IVP SCH ×2 (10:24→21:32)
--- NOTE | 2019-04-20 16:48 | HP ---
CHIEF COMPLAINT: Shortness of breath. HISTORY OF PRESENT ILLNESS: The patient is a 23-year-old male with a past medical history of asthma. He has had intubation about a year or 2 years ago, who presents to the hospital with complaints of worsening shortness of breath for the past couple of days. The patient states that he has been using his rescue inhaler more often and DuoNeb since Sunday night. He denies smoking or vaping or any illicit drug use. He denies any fevers or chills. He states that he started having worsening shortness of breath, started using his inhaler and neb treatment, which did not really help, so he came into the hospital. The patient, according to the records, states that he has been intubated about 3 times in his life. He has been diagnosed with asthma as a child. He currently does not have a primary care doctor. PAST MEDICAL HISTORY: Asthma. PAST SURGICAL HISTORY: He denies any surgeries. REVIEW OF SYSTEMS: All negative except for the ones mentioned above in the HPI. ALLERGIES: HE HAS NO KNOWN DRUG ALLERGIES. MEDICATIONS: He takes albuterol inhaler as needed. FAMILY HISTORY: No history of heart disease or stroke. SOCIAL HISTORY: He denies any alcohol use, drug use, or smoking history. He denies any recreational drug use. He is a full code. PHYSICAL EXAMINATION: VITAL SIGNS: As of the following; temperature of 98.2, pulse 99, respiratory rate 18, oxygen saturation 95% on room air in 2.5 nasal cannula, and blood pressure 125/71. GENERAL: He is awake, alert, and oriented x3. Does not appear in any distress. HEENT: Normocephalic, atraumatic. Pupils equal and reactive to light. NECK: No lymphadenopathy noted. cardiovascular: S1 and S2 present. Mildly tachycardic. LUNGS: Some mild expiratory wheezing all over. ABDOMEN: Soft and nontender. Bowel sounds are present x2. EXTREMITIES: No edema. Pedal pulses are present x2. NEUROVASCULAR: There are no focal deficits noted. SKIN: No cuts, lesions, or bruises noted. ASSESSMENT AND PLAN: The patient is a very pleasant 23-year-old male, who presents to the hospital with complaints of shortness of breath. 1. Acute asthma exacerbation. The patient received 6 hours continuous neb treatment with IV steroids. We will discontinue his IV steroids and also start him on breathing treatments. I was told that his flu was negative. The patient denies any upper respiratory tract infection. We will continue to monitor him. Possible discharge once he feels better. We will continue his Singulair that he takes at home. Also, he may require some sort of like a long-acting beta-agonist. 2. Deep venous thrombosis prophylaxis. We will put the patient on subcu heparin. Job ID: [id number]
[2019-04-20] MEDS ORDERED: Montelukast Sodium 10 mg Tablet PO SCH (21:00)
[2019-04-21 04:47] LABS: #Monocytes 0.5 thou/uL (0.11-0.59); #Neutrophils 14.8 thou/uL (1.40-6.50); %Eosinophils 0.2 % (0.0-10.0); %Lymphocytes 6.1 % (21.0-51.0); %Monocytes 2.9 % (0.0-10.0); %Neutrophils 90.8 % (42.0-75.0); Hemoglobin 16.4 g/dL (14.0-18.0); Mean Corpuscular HGB CONC 33.2 g/dL (32.0-36.0); Mean Corpuscular Hemoglobin 32.9 pg (27.0-31.0); Mean Corpuscular Volume 99.2 fL (78.0-98.0); Mean Platelet Volume 7.5 fL (7.4-10.4); Platelet Count 314 thou/uL (130-400); RBC Distribution Width 11.7 % (11.5-14.5); Red Blood Cell (RBC) Count 4.99 mill/uL (4.70-6.10); White Blood Cell (WBC) Count 16.3 thou/uL (4.8-10.8)
[2019-04-21 04:59] LABS: Anion Gap 14 mmol/L (10-20); BUN (Urea Nitrogen) 17 mg/dL (8.9-20.6); Calc. Creatinine Clearance 154 mL/min (70-130); Calcium 9.3 mg/dL (7.8-10.44); Carbon Dioxide 23 mmol/L (22-29); Chloride 105 mmol/L (98-107); Estimated GFR-MDRD Greater than 90; Glucose 117 mg/dL (70-105); Potassium 4.5 mmol/L (3.5-5.1); Sodium 137 mmol/L (136-145)
[2019-04-21] MEDS: Famotidine 20 MG TAB PO SCH (08:52)
[2019-04-21] MEDS: methylPREDNISolone Sod Succ 40 MG VIAL IVP SCH (08:56)
[2019-04-21] MEDS: Enoxaparin Sodium 40 MG/0.4 ML SYRINGE SC SCH (08:57)
[2019-04-21 16:33] VITALS: BP 135/63; TEMP 98
== END 2019-04-21 17:35 | disposition home or self-care (01) | DRG 203 ==
LOC: 2NO 08:30
PROVIDERS: ADMIT Internal Medicine; ATTEND Internal Medicine
DX: J45.901 Unspecified asthma with (acute) exacerbation (principal)
CPT/HCPCS: 36415; 80048; 85025; 90471; 90732; 94640; G0009; J2920; J7620

== ENCOUNTER 2019-08-12 15:19 | Inpatient (IN) | payer SELFPAY ==
[2019-08-12] MEDS ORDERED: Albuterol Sulfate 2.5 mg/3 ml Neb ONE ×2 (15:55→20:43)
[2019-08-12] MEDS ORDERED: Albuterol Sulfate 2.5 mg/0.5 ml Neb ONE ×3 (15:55→20:41)
--- NOTE | 2019-08-12 16:10 | RAD ---
Chest one view HISTORY: Dyspnea. COMPARISON: 07/10/2018. FINDINGS: Cardiac silhouette and pulmonary vasculature are unremarkable. Mediastinum is midline. No c onfluent airspace consolidation or evidence of pneumothorax. IMPRESSION : No active cardiopulmonary abnormalities are demonstrated.
[2019-08-12 16:14] LABS: Hemoglobin 16.1 g/dL (14.0-18.0); Mean Corpuscular HGB CONC 33.7 g/dL (32.0-36.0); Mean Corpuscular Hemoglobin 32.1 pg (27.0-31.0); Mean Corpuscular Volume 95.3 fL (78.0-98.0); Mean Platelet Volume 7.5 fL (7.4-10.4); Platelet Count 316 thou/uL (130-400); RBC Distribution Width 11.7 % (11.5-14.5); Red Blood Cell (RBC) Count 5.01 mill/uL (4.70-6.10); White Blood Cell (WBC) Count 20.5 thou/uL (4.8-10.8)
[2019-08-12 16:35] LABS: Band 26 % (5-11); Lymphocytes 1 % (21-51); MDiff Complete? YES; Monocytes 3 % (0-10); Neutrophil 70 % (42-75); Platelet Morphology Comment Appears Adequate; RBC Morphology Normal
[2019-08-12 16:40] LABS: ALT (SGPT) 20 U/L (8-55); AST (SGOT) 18 U/L (5-34); Albumin 4.9 g/dL (3.5-5.0); Alkaline Phosphatase 99 U/L (40-110); Anion Gap 16 mmol/L (10-20); BUN (Urea Nitrogen) 15 mg/dL (8.9-20.6); Bilirubin, Total 0.7 mg/dL (0.2-1.2); Calc. Creatinine Clearance 0 mL/min (70-130); Calcium 9.1 mg/dL (7.8-10.44); Carbon Dioxide 22 mmol/L (22-29); Chloride 106 mmol/L (98-107); Estimated GFR-MDRD Greater than 90; Globulin 3.1 g/dL (2.4-3.5); Glucose 149 mg/dL (70-105); Potassium 3.9 mmol/L (3.5-5.1); Sodium 140 mmol/L (136-145)
[2019-08-12] MEDS ORDERED: EPINEPHrine 1 MG/ML AMP ONE (16:46)
[2019-08-12] MEDS ORDERED: methylPREDNISolone Sod Succ/PF 125 MG/2 ML VIAL ONE (17:38)
--- NOTE | 2019-08-12 17:41 | PDOC.FPRHP ---
- Allergies/Adverse Reactions Allergies Allergy/AdvReac Type Severity Reaction Status Date / Time No Known Allergies Allergy Verified 03/22/19 15:09 - Home Medications Medication Instructions Recorded Confirmed Type Albuterol Sulfate [Proair HFA] 2 puff INH Q4HR PRN 30 Days #90 inh 03/23/19 Rx Budesonide [Pulmicort Flexhaler] 1 puff INH BID #1 inhaler 04/21/19 Rx Ipratropium/Albuterol Sulfate 3 ml NEB QID #120 neb 04/21/19 Rx [Duoneb] Montelukast Sodium [Singulair] 10 mg PO DAILY #30 tab 04/21/19 Rx Prednisone [predniSONE 10 mg 10 mg PO ASDIR #1 tab.ds.pk 04/21/19 Rx Dosepak] - History PMHx: PSHx: FHx: Social: - Vital signs BP: [] HR: [] RR: [] Tmax: [] Pox: []% on [] Wt: [] FMR H&P: Results - Labs Result Diagrams: 08/12/19 16:02 08/12/19 16:02 Lab results: WBC 20.5 thou/uL (4.8-10.8) H 08/12/19 16:02 Hgb 16.1 g/dL (14.0-18.0) 08/12/19 16:02 Hct 47.7 % (42.0-52.0) 08/12/19 16:02 MCV 95.3 fL (78.0-98.0) 08/12/19 16:02 Plt Count 316 thou/uL (130-400) 08/12/19 16:02 Band Neuts % (Manual) 26 % (5-11) H 08/12/19 16:02 Sodium 140 mmol/L (136-145) 08/12/19 16:02 Potassium 3.9 mmol/L (3.5-5.1) 08/12/19 16:02 Chloride 106 mmol/L (98-107) 08/12/19 16:02 Carbon Dioxide 22 mmol/L (22-29) 08/12/19 16:02 BUN 15 mg/dL (8.9-20.6) 08/12/19 16:02 Creatinine 0.99 mg/dL (0.7-1.3) 08/12/19 16:02 Glucose 149 mg/dL (70-105) H 08/12/19 16:02 Calcium 9.1 mg/dL (7.8-10.44) 08/12/19 16:02 Total Bilirubin 0.7 mg/dL (0.2-1.2) 08/12/19 16:02 AST 18 U/L (5-34) 08/12/19 16:02 ALT 20 U/L (8-55) 08/12/19 16:02 Alkaline Phosphatase 99 U/L (40-110) 08/12/19 16:02 Serum Total Protein 8.0 g/dL (6.0-8.3) 08/12/19 16:02 Albumin 4.9 g/dL (3.5-5.0) 08/12/19 16:02 FMR H&P: Upper Level - Plan Date/Time: 08/12/19 1740 PCP: NATALIYA HPI: This is a 24 yo M coming in for Asthma Exacerbation. He has been intubated x4 in his lifetime for asthma, last time was 2017, last hosp admission was Mar 2019. He states he has been feeling worse for the last 2 days. He denies fever, chills, or sweats. He cough with mild production after using nebs at home. He denies N/V/D. He denies any sick contacts although he did travel by car to [place] for vacation last week, he and his family drove there and back. He uses albuterol, Advair, and singulair at home he states that he does not miss his medications. The patient went to [facility] ER last night and was treated with magnesium and steroids he thinks, he was given a script for PO steroids but never picked it up. He returned to [facility] this AM where he was treated with albx4, duoneb, solumedrol 125mg, mag 4g, and racemic epinephrine. He then was transferred to [facility] ED where he was treated was IM epi, albuterol, and NS. PMH: Asthma PSH: none Meds: adviar, albuterol, singulair Allergies: NKDA Soc Hx: former heroin user, denies tobacco use, no alcohol Fm hx: denies heart disease or asthma REVIEW OF SYSTEMS: Gen: no fever, chills, or sweats Neuro: denies headache Eyes: no visual changes ENT: no hearing changes, no sore throat, no congestion Resp: see hpi Card: denies CP, palpitations GI: no N/V/D, no abdominal pain Skin: no rash, no erythema BP: 106/76, Pulse: 125, Resp: 24, Temp: 98.5 (Oral), Pain: 0, O2 sat: 92 on ( Room Air), Time: 08/12/2019 15:27. PHYSICAL EXAMINATION: General: NAD, alert and oriented x3 HEENT: PERRLA, EOMI, normal sclera, oropharynx without erythema or exudate Neck: Supple. Full ROM. Heart/Cardiovascular System: RRR, Cap refill < 3 seconds, no rub, no murmur Lungs/Respiratory System: no retractions, inspiratory and expiratory wheezes, gets short of breath at the end of a sentence Abdomen/Gastro-Intestinal System: no abdominal tenderness, normal bowel sounds Extremities: Warm extremities. No cyanosis or edema Neuro: No gross deficits appreciated. CN 2-12 grossly intact Psychiatry: Awake, Alert and cooperative with exam Skin: No lesions, rashes, or ulcers Musculoskeletal: Full ROM A/P: # Asthma Exacerbation - see hpi for ED course - cont duoneb q4 fred, q2 prn - solu-medrol 125mg q6 hours, transition to PO in the AM as long as patient is improved - Lr 75ml/hr - Procal, RVP panel pending - Discussed case with Dr. Holt, low risk for coronavirus, will not test at this time - Pulmonology consulted, appreciate recommendations - Asymmetric crackles on exam will start azithromycin, RVP, procal pending # Hx IV drug use - UDS pending Fluids: LR 75ml/hr Code: full PPx: scd Dispo: 1-2 days, inpt Addendum - Attending - Attending Attestation Date/Time: 08/12/191823 I personally evaluated the patient and discussed the management with Dr. Jules I agree with the History, Examination, Assessment and Plan documented above with any addition or exceptions noted below. 24 you WM PMH asthma with hx of status asthmaticus requiring ET intubation. Presents with 3-4 day hx of worsening SOB. Seen at yesterday and sent home with PO steroids. RTC to outside ER today and found to be worse. Received nebs, IM steroids, IM epi, and IV mag. Had meds repeated at [facility]. States these exacerbations typically happen with weather change. Denies compliance issues with medications. Currently on singular, advair, and proair. Exam remarkable for tachycardia and expiratory wheezing with prolong expiratory phase. Speaks in full sentences. VS remarkable for tachycardia. labs showed normal ABG at outside ER. Leukocytosis with bandemia likely due to steroids. Admit for Acute asthma exacerbation. Will place on medical floor after discussion with pulm due to limited number of beds in ICU. I discussed this with the patient and told him the resident team would round on him throughout the night. If he feels he is becoming more SOB, will move to ICU, consider terbutaline gtt, and start on HFNC or BiPAP. Continue steroids, FRED nebs, and azithro. INpatient Medical >2 midnights.
[2019-08-12] MEDS ORDERED: Azithromycin 500 MG in Sodium Chloride 0.9% 250 ML 250 ML IVPB SCH ×2 (17:45→23:00)
[2019-08-12] MEDS ORDERED: Albuterol Sulfate 2.5 mg/3 ml Neb NEB PRN (21:58)
[2019-08-12] MEDS ORDERED: Ondansetron PF 4 MG/2 ML Vial IVP PRN (21:58)
[2019-08-12] MEDS ORDERED: Acetaminophen 325 MG TAB PO PRN ×2 (21:58→22:12)
[2019-08-12] MEDS ORDERED: Ondansetron ODT 4 MG TAB SL PRN (21:58)
[2019-08-12] MEDS ORDERED: Ondansetron ODT 4 MG TAB PO PRN (22:12)
[2019-08-12] MEDS ORDERED: Lactated Ringer's 1,000 ML IV SCH (22:12)
[2019-08-12 22:25] VITALS: BMI 25.0
--- NOTE | 2019-08-12 22:29 | CON ---
DATE OF CONSULTATION: 08/12/2019 SERVICE: Pulmonary Medicine REASON FOR CONSULTATION: Asthma exacerbation. HISTORY OF PRESENT ILLNESS: The patient is a 24-year-old white male with past medical history significant for asthma. He has been intubated a couple of times in his life. Currently, he is taking Advair on a sparing basis. He typically lets this medications stretch out. He uses it once most days. Whenever he starts feeling lousy, he will start increasing usage twice daily. He does not have any financial barrier to prevent him from getting this medication. He denies any current fevers, chills, nausea, or vomiting, but about 2 to 3 days prior to admission, he started having increased work of breathing and used his albuterol rescue inhaler. He presented to an Urgent [facility] Clinic 2 days prior to admission and he was given some steroids and magnesium. Initially, he felt better, but as he was taking his steroids in the outpatient basis, he had increasing work of breathing. He returned to the emergency department, was put on some steroids, given nebulized medications and once again was provided some magnesium. Once again, the patient seems to be improving a little bit, but he is not back to baseline. He is being considered for admission to the hospital. He endorses symptoms consistent with acid reflux disease as well as sleep apnea. He denies any rhinitis. Now, he has been sick recently. PAST MEDICAL HISTORY: Asthma, severe, persistent. PAST SURGICAL HISTORY: None. ALLERGIES: NO KNOWN DRUG ALLERGIES. MEDICATIONS: List of his inpatient medications was reviewed. No specific updates were made. SOCIAL HISTORY: Negative for alcohol, tobacco, or illicit drug use. He has a remote history of heroin use. He denies any exposure to chemicals, dust, asbestos, or tuberculosis. FAMILY HISTORY: Noncontributory other than asthma. REVIEW OF SYSTEMS: General, head, ears, eyes, nose, throat, cardiovascular, respiratory, GI, , musculoskeletal, neurologic, and skin are negative except as mentioned in the HPI. PHYSICAL EXAMINATION: VITAL SIGNS: Afebrile, pulse 96, respirations 14, saturations 98%, currently on 2 L nasal cannula. GENERAL: The patient is awake and alert, in no apparent distress. LUNGS: Extensive wheezing is present. There is a prolonged expiratory phase. That being said, he is moving pretty good air. There are bilateral crackles, which tend to be a little bit worse on the right compared to the left. HEART: Normal rate. Regular. ABDOMEN: Soft, nontender, nondistended. Bowel sounds are positive. MUSCULOSKELETAL: No cyanosis or clubbing. There is no pitting in the bilateral lower extremities. NEUROLOGIC: Grossly nonfocal. LABORATORY DATA: WBC 20.5, hemoglobin 16.1, and platelets 316,000. Band counts are 26% on top of 70% neutrophils. Procalcitonin is unremarkable. Basic metabolic profile and liver function studies are negative. IMAGING: Chest x-ray demonstrates no active cardiopulmonary disease. He has flattening of the diaphragm, consistent with hyperexpanded lung jordan. Likely nipple ring on the right. No consolidating lesions or effusions are present, but there are subtle cephalization and interstitial fullness throughout bilateral lung jordan. This may be normal for his age. ASSESSMENT: 1. Acute hypoxic respiratory failure. 2. Asthma with acute exacerbation. DISCUSSION AND PLAN: He is going to be admitted to the hospital. We will give him some steroids, and nebulized medications. He will continue using his Singulair. I have counseled him on following acid reflux precautions for life, and he is to discuss whether or not a polysomnogram is in his interest in the outpatient setting with his primary care physician at [facility]. Lastly, he has increased his compliance with taking his Advair twice daily. Should he have frequent exacerbations in respiratory issues, he is to discuss increasing the dose of the Advair. I will get an IgE level with morning laboratories. The eosinophil count is not helpful as he is on steroids when this was performed. My suspicion is that the band count is the reason for the steroids. The procalcitonin being low is reassuring, but would like to cover for atypical pathogens given the crackling and wheezing that we hear on chest x-ray. I will add a BNP to tomorrow morning's laboratories and if this is close to abnormal, an echocardiogram should be considered. Critical Care will continue to follow closely. Job ID: [id number]
--- NOTE | 2019-08-12 23:26 | PDOC.BPN ---
- Brief Progress Note S:Evaluated the patient. He reports that he is breathing more comfortably now than upon admission, though he still feels like his lungs are "tight." O: T98.8, p117, r20, Ow Sat 94% on 3L NC, BP 135/64. PE: General: patient in no acute distress Cardiac: RRR Respiratory: poor inspiratory effort with wheezing throughout A: 24M admitted for asthma exacerbation, improving P: Continue plan of care. Will continue duonebs and steroids. Continue to monitor closely.
[2019-08-13 04:17] LABS: #Lymphocytes 0.9 thou/uL (1.20-3.40); #Monocytes 1.2 thou/uL (0.11-0.59); %Eosinophils 0.2 % (0.0-10.0); %Lymphocytes 4.7 % (21.0-51.0); %Monocytes 6.2 % (0.0-10.0); %Neutrophils 88.9 % (42.0-75.0); Hemoglobin 15.5 g/dL (14.0-18.0); Mean Corpuscular HGB CONC 34.8 g/dL (32.0-36.0); Mean Corpuscular Hemoglobin 33.2 pg (27.0-31.0); Mean Corpuscular Volume 95.3 fL (78.0-98.0); Mean Platelet Volume 7.5 fL (7.4-10.4); Platelet Count 293 thou/uL (130-400); RBC Distribution Width 11.5 % (11.5-14.5); Red Blood Cell (RBC) Count 4.68 mill/uL (4.70-6.10); White Blood Cell (WBC) Count 19.1 thou/uL (4.8-10.8)
[2019-08-13 04:21] LABS: Amphetamine Not Detected (NotDetected); Barbiturates Screen Not Detected (NotDetected); Benzodiazepine Screen Not Detected (NotDetected); Cocaine Metabolite Screen Not Detected (NotDetected); Medtox Control Line Valid? VALID (VALID); Medtox Reader # READER 4; Methadone Not Detected (NotDetected); Methamphetamine Not Detected (NotDetected); Opiate Screen Not Detected (NotDetected); Oxycodone Screen Not Detected (NotDetected); Phencyclidine (PCP) Not Detected (NotDetected); THC/Cannabinoid Screen Detected (NotDetected); Tricyclic Screen Not Detected (NotDetected)
--- NOTE | 2019-08-13 07:34 | PDOC.FM ---
- Subjective Subjective: Stable this morning. States did not get much rest overnight. Still feels SOB and tight. No fever/chills, CP. Tolerating PO. Steroids has led to increased anxiety this AM. Improved with nebs but still with significant SOB. - Objective MAR Reviewed: Yes Vital Signs & Weight: Vital Signs (12 hours) Temp Pulse Resp BP Pulse Ox 08/13/19 07:15 96 08/13/19 07:14 90 20 96 08/13/19 03:00 97.7 F 117 H 20 142/73 H 95 08/13/19 00:00 94 L 08/12/19 23:58 104 H 16 96 08/12/19 23:57 104 H 96 08/12/19 22:00 98.8 F 117 H 20 135/64 94 L Weight Weight 81.374 kg I&O: 08/12/19 08/13/19 08/14/19 06:59 06:59 06:59 Intake Total 1350 Output Total 600 Balance 750 Result Diagrams: 08/13/19 04:09 08/12/19 16:02 Phys Exam - Physical Examination diaphoretic, uncomfortably, speaking in short sentences. HEENT: moist MMs Neck: supple Respiratory: no rales, no rhonchi diffuse, significant wheezing thorughout, good aeration Cardiovascular: no significant murmur, no rub tachy, regular rhythm Gastrointestinal: soft, non-tender, no distention, positive bowel sounds Musculoskeletal: no edema Neurological: moves all 4 limbs Psychiatric: normal affect, A&O x 3 Dx/Plan (1) Acute respiratory failure with hypoxia Code(s): J96.01 - ACUTE RESPIRATORY FAILURE WITH HYPOXIA Status: Acute (2) Asthma Code(s): J45.909 - UNSPECIFIED ASTHMA, UNCOMPLICATED Status: Acute (3) Marijuana abuse Code(s): F12.10 - CANNABIS ABUSE, UNCOMPLICATED Status: Chronic - Plan Plan: 24yo CM with h/o severe, persistent asthma and drug abuse presents for acute hypoxic respiratory failure 2/2 asthma exacerbation #Acute hypoxic respiratory failure 2/2 asthma exacerbation - known history of severe, persistent asthma. Last hospitalized 1 month ago per pt. Intubated 3 times, last in 2018 - still tight on exam, diffuse wheeze - Pulm, Dr. Quintana, consulted, apprec recs. Cont nebs, steroids, abx. - Duoneb q4h with q2h prn. - Solumedorl 40mg BID - Azithro Day 2/ - Procal 0.02. WBC 19.1, likely 2/2 steroids. BNP 59 - RVP + Rhinovirus - pt admits to recent THC Use. States uses inhalers as prescribed. - Likely 2/2 THC + Rhinovirus - Consider Mag dose this AM, mini resp status closely, wean O2 as tolerated #H/o Drug Abuse - h/o heroin abuse per records - pt admits to THC use, UDS positive THC - counseled extensively on need to quit as likely contributes to asthma exacerbations Code: Full IVF: LR @ 75cc/hr Diet: Regular VTE: SCDs Dispo: Admit to medical inpt. Monitor resp status closely. Cont current management. Expected LOS 3-4d. Addendum - Attending - Attending Attestation Date/Time: 08/13/19 8027 I personally evaluated the patient and discussed the management with Dr. Woodward. I agree with the History, Examination, Assessment and Plan documented above with any addition or exceptions noted below.
[2019-08-13] MEDS ORDERED: hydrOXYzine Pamoate 25 mg Capsule PO PRN (07:42)
[2019-08-13] MEDS: methylPREDNISolone Sod Succ 40 MG VIAL IVP SCH ×2 (08:28→20:29)
[2019-08-13] MEDS ORDERED: Azithromycin 250 MG TAB PO SCH (09:00)
--- NOTE | 2019-08-13 13:25 | PRG ---
DATE OF SERVICE: 08/13/2019 SERVICE: Pulmonary Medicine. INTERVAL HISTORY: The patient is doing really well from respiratory standpoint. Breathing comfortably. That being said, he still feels tight in the chest and is not ready for discharge from the hospital. Otherwise, he denies any nausea, vomiting, or diarrhea. He has a lack of appetite mostly because of the medications he is on. PHYSICAL EXAMINATION: VITAL SIGNS: Afebrile, pulse 120, blood pressure 110/51, respirations 18, and saturation 94% on 1 L nasal cannula. GENERAL: The patient is awake and alert, in no apparent distress. LUNGS: Decent air entry. There are crackles on the left. There are no crackles on the right today. He is moving better air, but he still has some prolonged expiratory phase or wheezing present. HEART: Tachycardic. Regular. ABDOMEN: Soft, nontender, and nondistended. Bowel sounds are positive. MUSCULOSKELETAL: No cyanosis or clubbing. There is no pitting in the bilateral lower extremities. NEUROLOGIC: Grossly nonfocal. LABORATORY DATA: WBC 19.1, hemoglobin 15.5, platelets 293,000. Neutrophil count is 88% on top of 4% lymphocytes, and 6% monocytes. Basic metabolic profile, BNP, and procalcitonin are all unremarkable. Cannabinoids are positive on the urine drug screen. Respiratory virus panel is positive for rhinovirus. ASSESSMENT: 1. Acute hypoxic respiratory failure, resolved. 2. Asthma with acute exacerbation secondary to rhinovirus. DISCUSSION AND PLAN: The patient is doing fine from respiratory standpoint. His azithromycin can be discontinued after a total duration of 5 days. He will continue steroids, nebulized medications, and other supportive care. IgE level is currently pending. If this is abnormal, he should be considered for biologic agents in the outpatient setting, particularly if escalating to high-dose Advair, in addition of Spiriva are not effective. Pulmonary will continue to follow while the patient remains in-house, but frankly, as soon as he says he is comfortable for discharge, he can be dismissed with 14 days course of steroids and resumption of his home inhalers. Job ID: [id number]
[2019-08-13] MEDS: Montelukast Sodium 10 mg Tablet PO SCH (19:19)
[2019-08-13] MEDS ORDERED: Montelukast Sodium 10 mg Tablet PO SCH (19:30)
[2019-08-13] MEDS: Azithromycin 250 MG TAB PO SCH (20:28)
[2019-08-13] MEDS: Mometasone/Formoterol 120 PUFF INHALER INH SCH (21:59)
--- NOTE | 2019-08-14 08:01 | PDOC.FM ---
- Subjective Subjective: Improved this morning, SOB improved, less wheeze. Tolerating PO well. Weaned to 1L NC. No fever/chills, n/v. Ambulating. - Objective MAR Reviewed: Yes Vital Signs & Weight: Vital Signs (12 hours) Temp Pulse Resp BP Pulse Ox 08/14/19 04:00 120 H 94 L 08/13/19 23:28 98.6 F 118 H 20 123/92 H 92 L Weight Weight 81.374 kg I&O: 08/13/19 08/14/19 08/15/19 06:59 06:59 06:59 Intake Total 1350 1250 Output Total 600 Balance 750 1250 Result Diagrams: 08/13/19 04:09 08/12/19 16:02 Phys Exam - Physical Examination Constitutional: NAD (resting comfortably) HEENT: moist MMs Neck: supple Respiratory: no rales, no rhonchi Good aeration, diffuse end-exp wheeze throughout Cardiovascular: RRR, no significant murmur, no rub Gastrointestinal: soft, non-tender, no distention, positive bowel sounds Musculoskeletal: no edema Neurological: non-focal, moves all 4 limbs Psychiatric: normal affect, A&O x 3 Dx/Plan (1) Acute respiratory failure with hypoxia Code(s): J96.01 - ACUTE RESPIRATORY FAILURE WITH HYPOXIA Status: Acute (2) Asthma Code(s): J45.909 - UNSPECIFIED ASTHMA, UNCOMPLICATED Status: Acute (3) Marijuana abuse Code(s): F12.10 - CANNABIS ABUSE, UNCOMPLICATED Status: Chronic - Plan Plan: 24yo CM with h/o severe, persistent asthma and drug abuse presents for acute hypoxic respiratory failure 2/2 asthma exacerbation #Acute hypoxic respiratory failure 2/2 asthma exacerbation, improving - known history of severe, persistent asthma. Last hospitalized 1 month ago per pt. Intubated 3 times, last in 2018 - exam improved, still with diffuse wheeze. Will on 1L, will wean O2 as tolerated. - Puldemi, Dr. Quintana, consulted, apprec recs. Cont nebs, steroids, abx. - Duoneb q4h with q2h prn. - Solumedorl 40mg BID - will transition to PO - Azithro Day 3/5 - transition to PO - Procal 0.02. WBC 19.1, likely 2/2 steroids. BNP 59 - RVP + Rhinovirus - pt admits to recent THC Use. States uses inhalers as prescribed. - Likely 2/2 THC + Rhinovirus - Consider Mag dose this AM, mini resp status closely, wean O2 as tolerated - cont home advair and singulair #H/o Drug Abuse - h/o heroin abuse per records - pt admits to THC use, UDS positive THC - counseled extensively on need to quit as likely contributes to asthma exacerbations Code: Full IVF: SL Diet: Regular VTE: SCDs Dispo: Admit to medical inpt. Monitor resp status closely. Cont current management. Expected discharge in next 1-2 days pending clinical course. Addendum - Attending - Attending Attestation Date/Time: 08/14/19 5815 I personally evaluated the patient and discussed the management with Dr. Woodward. I agree with the History, Examination, Assessment and Plan documented above with any addition or exceptions noted below.
[2019-08-14] MEDS: Mometasone/Formoterol 120 PUFF INHALER INH SCH ×2 (08:24→18:21)
[2019-08-14] MEDS: predniSONE 20 MG TAB PO SCH (09:45)
[2019-08-14] MEDS: Montelukast Sodium 10 mg Tablet PO SCH (09:45)
--- NOTE | 2019-08-14 09:59 | PRG ---
DATE OF SERVICE: 08/14/2019 SERVICE: Pulmonary Medicine. INTERVAL HISTORY: The patient is doing fine from respiratory standpoint. Breathing comfortably. No complaints of chest discomfort, fevers, chills, nausea, or vomiting. He indicates that his lungs are finally opening. That being said, he does not feel comfortable leaving yet. Otherwise, there has been no interval change to his condition. PHYSICAL EXAMINATION: VITAL SIGNS: Afebrile. Pulse 111, blood pressure 115/56, respirations 20, and saturation 94% on 1 L nasal cannula. GENERAL: The patient is awake and alert, in no apparent distress. LUNGS: Decent air entry. No prolonged expiratory phase or wheezing is appreciated. HEART: Normal rate and regular. ABDOMEN: Soft, nontender, and nondistended. Bowel sounds positive. MUSCULOSKELETAL: No cyanosis or clubbing. There is no pitting in the bilateral lower extremities. NEUROLOGIC: Grossly nonfocal. ASSESSMENT: 1. Acute hypoxic respiratory failure, resolving. 2. Asthma with acute exacerbation secondary to rhinovirus. DISCUSSION AND PLAN: The patient is doing great from respiratory standpoint. He will need a 14-day course of steroids and 5-day course of antibiotics. At this point, he has no further requirements for inpatient Pulmonary or Critical Care opinion, and I will sign off. Please call with additional questions or concerns through time. In the outpatient setting, if he needs his albuterol more than twice per week, I considers asthma uncontrolled and he needs escalating doses of medications. If this does not prevent him from requiring his albuterol frequently, he should be considered for biologic agent. Job ID: [id number]
[2019-08-14] MEDS: Azithromycin 250 MG TAB PO SCH (20:50)
[2019-08-15] MEDS: Mometasone/Formoterol 120 PUFF INHALER INH SCH (07:09)
--- NOTE | 2019-08-15 08:03 | PDOC.FM ---
- Subjective Subjective: Much improved this AM. States was able to ambulated well yesterday. Tolerating PO intake. No fever/chills, CP. SOB improved. No cough/congestion. - Objective MAR Reviewed: Yes Vital Signs & Weight: Vital Signs (12 hours) Temp Pulse Resp BP Pulse Ox 08/15/19 07:09 116 H 16 08/15/19 00:00 102 H 08/14/19 23:42 20 08/14/19 20:00 98.7 F 116 H 20 103/57 L 93 L Weight Weight 81.374 kg I&O: 08/14/19 08/15/19 08/16/19 06:59 06:59 06:59 Intake Total 1250 Output Total 600 Balance 1250 -600 Result Diagrams: 08/13/19 04:09 08/12/19 16:02 Phys Exam - Physical Examination Constitutional: NAD (resting comfortably, no increased work of breathing, good spirits) HEENT: moist MMs Neck: supple Respiratory: no rales, no rhonchi Good aeration. Mild end-exp wheeze but much improved Cardiovascular: RRR, no significant murmur, no rub Gastrointestinal: soft, non-tender, no distention, positive bowel sounds Musculoskeletal: no edema Neurological: moves all 4 limbs Psychiatric: normal affect, A&O x 3 Dx/Plan (1) Acute respiratory failure with hypoxia Code(s): J96.01 - ACUTE RESPIRATORY FAILURE WITH HYPOXIA Status: Acute (2) Asthma Code(s): J45.909 - UNSPECIFIED ASTHMA, UNCOMPLICATED Status: Acute (3) Marijuana abuse Code(s): F12.10 - CANNABIS ABUSE, UNCOMPLICATED Status: Chronic - Plan Plan: 24yo CM with h/o severe, persistent asthma and drug abuse presents for acute hypoxic respiratory failure 2/2 asthma exacerbation #Acute hypoxic respiratory failure 2/2 asthma exacerbation, improving - known history of severe, persistent asthma. Last hospitalized 1 month ago per pt. Intubated 3 times, last in 2018 - exam improved, mild end-exp wheeze. Weaned to RA and satting 92 this AM - Puldemi, Dr. Quintana, consulted, apprec recs. Cont nebs, steroids x2wks, abx x5d. Consider immunologic therapy as OP. - Duoneb q6h with q2h prn. - Solumedrol transitioned to Prednisone 40mg daily 09/08 - Azithro Day 4 - Procal 0.02. WBC 19.1, likely 2/2 steroids. BNP 59 - RVP + Rhinovirus - pt admits to recent THC Use. States uses inhalers as prescribed, but has had difficultly affording recently. CM consulted, pt states he now has coupon card to use for inhalers at home and has some had home for discharge for immediate use. - exacerbation likely 2/2 THC + Rhinovirus - cont home advair and singulair #H/o Drug Abuse - h/o heroin abuse per records - pt admits to THC use, UDS positive THC - counseled extensively on need to quit as likely contributes to asthma exacerbations, voiced understanding Code: Full IVF: SL Diet: Regular VTE: SCDs Dispo: Admitted to medical inpt. Monitor resp status closely. Cont current management. Improved. Expected discharge today pending clinical course. Addendum - Attending - Attending Attestation Date/Time: 08/15/19 0433 I personally evaluated the patient and discussed the management with Dr. Woodward. I agree with the History, Examination, Assessment and Plan documented above with any addition or exceptions noted below.
[2019-08-15 08:21] VITALS: BP 99/53; TEMP 97.9
[2019-08-15] MEDS: predniSONE 20 MG TAB PO SCH (09:22)
[2019-08-15] MEDS: Montelukast Sodium 10 mg Tablet PO SCH (09:23)
--- NOTE | 2019-08-15 18:33 | DIS ---
DATE OF ADMISSION: 08/12/2019 DATE OF DISCHARGE: 08/15/2019 RESIDENT: Catracho Woodward MD ADMITTING ATTENDING: Clay Webb MD DISCHARGE ATTENDING: Alexandro Cobos MD CONSULTS: Pulmonology, Dr. Quintana. PROCEDURES: 1. Chest x-ray on 08/12/2019 demonstrating no acute cardiopulmonary process. 2. Respiratory viral panel on 08/12/2019, demonstrating positive for rhinovirus. PRIMARY DIAGNOSIS: Acute hypoxic respiratory failure secondary to an asthma exacerbation. SECONDARY DIAGNOSIS: History of drug abuse. DISCHARGE MEDICATIONS: 1. Singulair 10 mg p.o. daily. 2. Advair 115/21 HFA one puff b.i.d. 3. ProAir two puffs q.4 hours p.r.n. 4. Prednisone 40 mg p.o. q.a.m. with meals x10 days. 5. Azithromycin 500 mg p.o. at bedtime x2 days. HISTORY OF PRESENT ILLNESS AND HOSPITAL COURSE: The patient is a 24-year-old male, who presented for an asthma exacerbation. He states that he has been feeling worse for the past two days. Denies any fevers, chills, or sweats and states mild cough after using nebs at home. He denied any nausea, vomiting, diarrhea, and denies any sick contacts, however, did travel by car to [place] last week. He states that he is on albuterol, Advair, and Singulair at home and initially states that he has not missed any of his medications, but upon further questioning, states that he has had difficulty affording his inhalers and thus has gone scheduled as prescribed. The patient initially presented to [facility] ER, where he was treated with magnesium and steroids and returned to the [facility] the next day where he was treated with albuterol, DuoNeb, Solu-Medrol, magnesium, racemic epi, and transferred to [facility] where he was treated with another dose of epinephrine, albuterol, normal saline, admitted for an acute hypoxic respiratory failure secondary to an asthma exacerbation. The patient has a known history of severe persistent asthma. He was last hospitalized approximately one month ago for an asthma exacerbation, has been intubated three times last in 2018. Pulmonology was consulted, who recommended continued nebs, steroids for a total of two week duration and completion of antibiotics for 5 days for atypical coverage and recommended close outpatient followup for consideration of immunologic therapy. The patient was initially placed on DuoNeb q.4 hours schedule and monitored closely with continued antibiotics and steroids and supplemental oxygen as needed. Over his hospitalization, the patient's respiratory status continued to improve. His lungs began to open up with decreased wheeze and his DuoNebs were able to be scheduled out. He was weaned off supplemental O2 on to room air. His procalcitonin was negative at 0.02. White blood cell count was 19, likely secondary to steroids and BNP was 59. Respiratory viral panel ultimately returned positive for rhinovirus. The patient also endorsed recent marijuana use and also endorsed having trouble affording his inhalers and thus had not been using them as prescribed. The patient's respiratory status continued to improve over his hospitalization. At the time of discharge, the patient was ambulating well, requiring no supplemental oxygen. Vital signs stable and lungs much improved with very mild end-expiratory wheeze. It is recommended that the patient continue taking his Advair twice daily and case management assisted with prescription discount programs for the patient. It was also recommend that the patient continue with albuterol or nebulizers q.6 hours scheduled for the next two days, then return to p.r.n. use. The patient was also told to continue his Singulair and finish an antibiotic and steroid course. It was also discussed that the patient should abstain from marijuana use as this could exacerbate his asthma. Per records, the patient also has a history of heroin abuse and this was also strongly discouraged. The patient voiced agreement and understanding of discharge plan. All questions were answered. The patient was also arranged with a primary care provider by Case Management prior to discharge and strongly encouraged to follow up with this as well as establish care with a associate artistic director for further management. DISPOSITION: Stable. DISCHARGE INSTRUCTIONS: 1. Location: Home. 2. Diet: As tolerated. 3. Activity: As tolerated. 4. Followup: The patient to follow up with primary care physician within one week of discharge. The patient also to establish care with associate artistic director as soon as possible. Job ID: [id number]
--- NOTE | 2019-08-16 14:50 | EKG ---
Test Reason : Blood Pressure : / mmHG Vent. Rate : 117 BPM Atrial Rate : 117 BPM P-R Int : 154 ms QRS Dur : 090 ms QT Int : 312 ms P-R-T Axes : 083 045 062 degrees QTc Int : 435 ms Sinus tachycardia Otherwise normal ECG Confirmed by RAJAT RESENDEZ ([id number]), index editor TERRY FUENTES ([id number]) on 08/16/2019 2:49:53 PM Referred By: Confirmed By:RAJAT Tomlin
== END 2019-08-15 13:20 | disposition home or self-care (01) | DRG 189 ==
LOC: ERS 15:19 → ONC 16:50
PROVIDERS: ADMIT Family Medicine; ATTEND Family Medicine
DX: J96.01 Acute respiratory failure with hypoxia (principal); J45.901 Unspecified asthma with (acute) exacerbation; B34.8 Other viral infections of unspecified site
CPT/HCPCS: 36415; 71045; 80053; 80306; 83880; 84145; 85025; 87633; 93005; 94640; 94644; 94645; 94760; J0171; J0456; J2920; J2930; J7050; J7512; J7611; J7620

== ENCOUNTER 2025-01-29 21:07 | Emergency (ER) | payer SELFPAY ==
[2025-01-29] MEDS ORDERED: Dexamethasone 10 MG/ML VIAL ONE (21:23)
[2025-01-29] MEDS ORDERED: Famotidine/PF 20 mg/2ml Vial ONE (21:33)
[2025-01-29] MEDS ORDERED: Magnesium 2 GM/50 ML BAG (IN WATER) ONE (21:33)
[2025-01-29 21:44] LABS: #Basophils 0.08 10x3/uL (0.0-0.2); #Eosinophils 0.60 10x3/uL (0.0-0.7); #Monocytes 0.85 10x3/uL (0.11-0.59); #Neutrophils 6.39 10x3/uL (1.40-6.50); %Basophils 0.8 % (0.0-1.0); %Eosinophils 5.9 % (0.0-10.0); %Lymphocytes 21.9 % (21.0-51.0); %Monocytes 8.3 % (0.0-10.0); %Neutrophils 62.8 % (42.0-75.0); Hematocrit 43.2 % (42.0-52.0); Hemoglobin 15.0 g/dL (14.0-18.0); Mean Corpuscular Hemoglobin 31.8 pg (27.0-31.0); Mean Corpuscular Volume 91.5 fL (78.0-98.0); Platelet Count 314 10x3/uL (130-400); Red Blood Cell (RBC) Count 4.72 mill/uL (4.70-6.10); White Blood Cell (WBC) Count 10.18 10x3/uL (4.8-10.8)
[2025-01-29 22:07] LABS: ALT (SGPT) 25 U/L (Less than 45); AST (SGOT) 58 U/L (11-34); Albumin 4.1 g/dL (3.1-4.5); Alkaline Phosphatase 106 U/L (40-110); Anion Gap 15 mmol/L (10-20); BUN (Urea Nitrogen) 10 mg/dL (8.9-20.6); Bilirubin, Total 0.7 mg/dL (0.3-1.2); Calc. Creatinine Clearance 0 mL/min (70-130); Calcium 9.1 mg/dL (7.8-10.44); Carbon Dioxide 25 mmol/L (22-29); Chloride 105 mmol/L (98-107); Globulin 3.1 g/dL (2.4-3.5); Glucose 116 mg/dL (70-105); Potassium 3.5 mmol/L (3.5-5.1); Sodium 141 mmol/L (136-145)
== END 2025-01-30 00:15 | disposition home or self-care (01) ==
LOC: ERS 21:07
DX: J45.901 Unspecified asthma with (acute) exacerbation (principal); Z79.51 Long term (current) use of inhaled steroids
CPT/HCPCS: 71045; 80053; 85025; 96374; 96375; J1100; J1308; J3475; J7620